=== PATIENT | male | born 2000 | race Asian ===

== ENCOUNTER 2023-11-04 14:08 | Outpatient (CLI) | payer MEDICAID ==
[2023-11-04 15:03] LABS: BASOPHILS % (AUTO) 0.8 %; EOSINOPHILS # (AUTO) 0.1 10^3/uL (0.0-0.7); EOSINOPHILS % (AUTO) 2.5 %; HCT - HEMATOCRIT 43.9 % (42.0-52.0); HGB - HEMOGLOBIN 15.2 g/dL (14.0-18.0); LYMPHOCYTES # (AUTO) 1.7 10^3/uL (1.5-3.5); LYMPHOCYTES % (AUTO) 32.4 %; MEAN CORPUSCULAR HEMOGLOBIN 31.2 pg (27.0-31.0); MEAN CORPUSCULAR HGB CONC 34.6 g/dL (32.0-36.0); MEAN CORPUSCULAR VOLUME 90.1 fL (80.0-94.0); MONOCYTES # (AUTO) 0.4 10^3/uL (0.0-1.0); NEUTROPHILS # (AUTO) 2.9 10^3/uL (1.5-6.6); NEUTROPHILS % (AUTO) 55.9 %; PLT - PLATELET COUNT 224 10^3/uL (130-450); RED BLOOD COUNT 4.87 10^6/uL (4.70-6.10); WHITE BLOOD COUNT 5.1 x10^3/uL (4.8-10.8)
[2023-11-04 15:24] LABS: ALBUMIN 5.1 g/dL (3.2-5.5); ALBUMIN/GLOBULIN RATIO 1.8 (1.0-2.2); ALKALINE PHOSPHATASE 55 IU/L (42-121); ALT ALANINE AMINOTRANSFERASE 26 IU/L (10-60); AST ASPARTATE AMINOTRANSFERASE 19 IU/L (10-42); BILIRUBIN,TOTAL 0.7 mg/dL (0.2-1.0); BUN - BLOOD UREA NITROGEN 14 mg/dL (6-20); CALCIUM 10.3 mg/dL (8.5-10.3); CARBON DIOXIDE - CO2 31 mmol/L (21-32); CHLORIDE 101 mmol/L (101-111); CHOL/HDL RATIO 6.2 (<5.0); CHOLESTEROL 198 mg/dL; CREATININE 0.9 mg/dL (0.6-1.3); GFR - MDRD 103 (>89); GLUCOSE 90 mg/dL (74-104); HDL CHOLESTEROL 32 mg/dL; SODIUM 137 mmol/L (135-145); TOTAL PROTEIN 7.9 g/dL (6.4-8.9); TRIGLYCERIDES 468 mg/dL (48-352); URIC ACID 6.2 mg/dL (4.4-7.6)
[2023-11-04 17:06] LABS: LDL CHOLESTEROL,DIRECT 105 mg/dL (75-193); LDLD/HDL RATIO 3.3 (<3.6)
[2023-11-04 19:18] LABS: THYROID STIMULATING HORMONE 2.23 uIU/mL (0.34-5.60)
[2023-11-04 20:23] LABS: CHLAMYDIA TRACHOMATIS DNA NEGATIVE (NEGATIVE); NEISSERIA GONORRHOEAE DNA NEGATIVE (NEGATIVE); TRICHOMONAS VAGINALIS DNA NEGATIVE (NEGATIVE)
[2023-11-05 03:11] LABS: HCV AB Non Reactive (Non Reactive)
[2023-11-05 07:11] LABS: HBsAG SCREEN Negative (Negative); HEPATITIS B SURFACE AB QUANT <3.1 mIU/mL (Immunity>9.9)
[2023-11-05 08:10] LABS: MEASLES ANTIBODIES IGG 84.9 AU/mL (Immune >16.4); VARICELLA-ZOSTER AB IGG 1085 index (Immune >165)
[2023-11-06 05:15] LABS: RPR Non Reactive (Non Reactive)
[2023-11-06 11:11] LABS: HCV RNA QUANTITATION HCV Not Detected IU/mL (.)
== END 2023-11-04 14:09 | disposition home or self-care (01) ==
LOC: LAB 14:08
PROVIDERS: ATTEND Physician Assistant Medical
DX: Z13.9 Encounter for screening, unspecified (principal)
CPT/HCPCS: 36415; 80053; 80061; 81599; 82306; 83721; 84403; 84443; 84550; 85025; 86317; 86592; 86704; 86709; 86735; 86762; 86765; 86787; 86803; 87340; 87491; 87522; 87591; 87661